=== PATIENT | male | born 1935 | race Caucasian/White ===

== ENCOUNTER 2018-05-11 02:05 | Emergency (ER) | payer MEDICARE, OTHER ==
--- NOTE | 2018-05-11 02:29 | EDM.PDOC ---
ED HPI GENERAL MEDICAL PROBLEM - General Chief Complaint: Chest Pain Stated Complaint: CP Time Seen by Provider: 05/11/18 02:08 Source of Information: Reports: Patient History Limitations: Reports: No Limitations - History of Present Illness INITIAL COMMENTS - FREE TEXT/NARRATIVE: This patient is an 82 year old male that presents to the ER. The patient arrives via EMS. The patient reports that at 9:30pm that he was watching the news sitting on the couch when the right side of chest began to hurt. The patient reports the pain is dull. He reports that the pain currently in the ER is a pain of 2/10. The patient reports that taking a big deep breath and palpation make the dullness worse. 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 he reports his last stress test was done in September 2017. The patient reports the stress test was fine. Patient reports that he has not had EKG done here in [place] before. He reports his cardiac care has been done in [place]. The patient is alert and oriented. Patient denies knox, dizziness, n, v, d, f, cough, dyspnea, exertional dyspnea, abd pain, back pain, urinary/bowel changes, rashes, edema. Onset Date: 05/10/18 Onset Time: 21:30 Duration: Hour(s): (5) Location: Reports: Chest Quality: Reports: Dull Severity: Mild Worsens with: Reports: Breathing (Big deep breath), Other (Palpation) Associated Symptoms: Reports: Chest Pain. 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 Middle Chest Pain Score (Numeric/FACES): 2 - Related Data Allergies Allergy/AdvReac Type Severity Reaction Status Date / Time No Known Allergies Allergy Verified 05/11/18 02:24 Home Meds: Home Meds Aspirin [Halfprin] 81 mg PO BEDTIME 05/16/15 [History] Diclofenac Sodium [Voltaren] 75 mg PO DAILY 05/16/15 [History] Isosorbide Mononitrate [Isosorbide Mononitrate ER] 30 mg PO DAILY 05/16/15 [ History] Metoprolol Tartrate 12.5 mg PO DAILY 05/16/15 [History] atorvaSTATin [Lipitor] 40 mg PO BEDTIME 05/16/15 [History] Cholecalciferol (Vitamin D3) [Vitamin D3] 2,000 units PO DAILY 06/02/15 [History ] Fish Oil/[place]-3 Fatty Acids [Fish Oil] 2,400 mg PO DAILY 06/02/15 [History] Ubidecarenone [Co Q-10] 300 mg PO DAILY 06/02/15 [History] Vitamin B Complex [B Complex] 1 tab PO DAILY 06/02/15 [History] Ascorbic Acid [Vitamin C] 1,000 mg PO DAILY 05/11/18 [History] Past Medical History Cardiovascular History: Reports: High Cholesterol, Hypertension - Past Surgical History GI Surgical History: Reports: Appendectomy Musculoskeletal Surgical History: Reports: Hip Replacement Social & Family History - Family History Family Medical History: Noncontributory - Tobacco Use Smoking Status *Q: Never Smoker - Caffeine Use Caffeine Use: Reports: None - Recreational Drug Use Recreational Drug Use: No ED ROS GENERAL - Review of Systems Review Of Systems: See Below Constitutional: Reports: No Symptoms. Denies: Fever, Chills, Malaise, Weakness , Fatigue, Night Sweats, Diaphoresis, Decreased Appetite, Weight Loss HEENT: Reports: Rhinitis Respiratory: Denies: Shortness of Breath, Wheezing, Cough, Sputum, Hemoptysis Cardiovascular: Reports: Chest Pain. Denies: Blood Pressure Problem, Claudication, Dyspnea on Exertion, Edema, Lightheadedness, Orthopnea, Palpitations, Syncope Endocrine: Reports: No Symptoms GI/Abdominal: Reports: No Symptoms. Denies: Abdominal Pain, Diarrhea, Nausea, Vomiting : Reports: No Symptoms Musculoskeletal: Reports: No Symptoms. Denies: Neck Pain, Back Pain Skin: Reports: No Symptoms Neurological: Reports: No Symptoms. Denies: Confusion, Dizziness, Headache, Numbness, Paresthesia, Pre-Existing Deficit, Seizure, Syncope, Tingling, Tremors , Trouble Speaking, Difficulty Walking, Weakness, Change in Speech, Gait Disturbance Psychiatric: Reports: No Symptoms Hematologic/Lymphatic: Reports: No Symptoms Immunologic: Reports: No Symptoms ED EXAM, GENERAL - Physical Exam Exam: See Below Exam Limited By: No Limitations General Appearance: Alert, WD/WN, No Apparent Distress Eye Exam: Bilateral Eye: Normal Inspection, PERRL Ears: Normal External Exam, Normal Canal, Hearing Grossly Normal, Normal TMs Ear Exam: Bilateral Ear: Auricle Normal, Canal Normal, TM normal Nose: Normal Inspection, Normal Mucosa, No Blood Throat/Mouth: Normal Inspection, Normal Lips, Normal Teeth, Normal Gums, Normal Oropharynx, Normal Voice, No Airway Compromise Head: Atraumatic, Normocephalic Neck: Normal Inspection, Supple, Non-Tender, Full Range of Motion Respiratory/Chest: No Respiratory Distress, Lungs Clear, Normal Breath Sounds, No Accessory Muscle Use, Other (Right chest wall. Pain made worse with palpation per patient. Also made worse with taking big deep breath.) Cardiovascular: Normal Peripheral Pulses, Regular Rate, Rhythm, No Edema, No Gallop, No JVD, No Murmur, No Rub Peripheral Pulses: 2+: Radial (L), Radial (R), Posterior Tibial (L), Posterior Tibial (R), Dorsalis Pedis (L), Dorsalis Pedis (R) GI/Abdominal: Normal Bowel Sounds, Soft, Non-Tender, No Organomegaly, No Distention, No Abnormal Bruit, No Mass, Pelvis Stable (Male) Exam: Deferred Rectal (Males) Exam: Deferred Back Exam: Normal Inspection, Full Range of Motion Extremities: Normal Inspection, Normal Range of Motion, Non-Tender, No Pedal Edema, Normal Capillary Refill Neurological: Alert, Oriented, Normal Cognition, No Motor/Sensory Deficits Psychiatric: Normal Affect, Normal Mood Skin Exam: Warm, Dry, Intact, Normal Color, No Rash Lymphatic: No Adenopathy EKG INTERPRETATION EKG Date: 05/11/18 Time: 02:18 Rhythm: Other (Calvin) Rate (Beats/Min): 54 QRS: LBBB ID/PQ Interval: 1st degree AV Block Comparison: NA - No Prior EKG Course - Vital Signs Last Recorded V/S: Last Vital Signs Temp 97.6 F 05/11/18 08:00 Pulse 50 L 05/11/18 08:00 Resp 20 05/11/18 08:00 BP 158/73 H 05/11/18 08:00 Pulse Ox 100 05/11/18 08:00 - Orders/Labs/Meds Orders: Active Orders 24 hr Category Date Time Status Chest 2V [CR] Stat Exams 05/11/18 02:10 Taken Labs: Laboratory Tests 05/11/18 05/11/1818 Range/Units 02:10 02:10 02:10 WBC 5.6 (5.0-10.0) 10^3/uL RBC 4.14 L (4.50-6.00) 10^6/uL Hgb 13.2 L (14.0-18.0) g/dL Hct 39.5 L (40.0-54.0) % MCV 95.4 H (82.0-94.0) fL MCH 31.9 (27.0-32.0) pg MCHC 33.4 (33.0-38.0) g/dL RDW Coeff of Thalia 13.3 (11.0-15.0) % Plt Count 175 (150-400) 10^3/uL Neut % (Auto) 45.3 (35-85) % Lymph % (Auto) 40.5 (10-55) % Greene % (Auto) 11.5 (0-16) % Eos % (Auto) 2.5 (0-5) % Baso % (Auto) 0.2 (0-3) % Neut # (Auto) 2.52 (1.80-7.00) 10^3/uL Lymph # (Auto) 2.25 (1.00-4.80) 10^3/uL Greene # (Auto) 0.64 (0.00-0.80) 10^3/uL Eos # (Auto) 0.14 (0.00-0.45) 10^3/uL Baso # (Auto) 0.01 10^3/uL PT 10.1 (9.7-12.3) SEC INR 0.97 (0.92-1.18) Sodium 143 (136-145) mEq/L Potassium 3.7 (3.5-5.0) mEq/L Chloride 104 (98-106) mEq/L Carbon Dioxide 31 (21-32) mmol/L BUN 21 H (7-18) mg/dL Creatinine 0.9 (0.7-1.3) mg/dL Est Cr Clr Drug Dosing 67.40 mL/min Estimated GFR (MDRD) > 60 (>=60) mL/min Glucose 104 H (75-99) mg/dL Calcium 9.0 (8.4-10.1) mg/dL Total Bilirubin 0.6 (0.0-1.0) mg/dL AST 29 (15-37) U/L ALT 30 (12-78) U/L Alkaline Phosphatase 123 H (46-116) U/L Lactate Dehydrogenase 200 H (100-190) U/L Creatine Kinase 99 (35-232) U/L Troponin I < 0.017 (0.00-0.06) ng/mL Total Protein 6.7 (6.4-8.2) g/dL Albumin 3.6 (3.4-5.0) g/dL 05/11/18 05/11/18 Range/Units 05:00 09:00 WBC (5.0-10.0) 10^3/uL RBC (4.50-6.00) 10^6/uL Hgb (14.0-18.0) g/dL Hct (40.0-54.0) % MCV (82.0-94.0) fL MCH (27.0-32.0) pg MCHC (33.0-38.0) g/dL RDW Coeff of Thalia (11.0-15.0) % Plt Count (150-400) 10^3/uL Neut % (Auto) (35-85) % Lymph % (Auto) (10-55) % Greene % (Auto) (0-16) % Eos % (Auto) (0-5) % Baso % (Auto) (0-3) % Neut # (Auto) (1.80-7.00) 10^3/uL Lymph # (Auto) (1.00-4.80) 10^3/uL Greene # (Auto) (0.00-0.80) 10^3/uL Eos # (Auto) (0.00-0.45) 10^3/uL Baso # (Auto) 10^3/uL PT (9.7-12.3) SEC INR (0.92-1.18) Sodium (136-145) mEq/L Potassium (3.5-5.0) mEq/L Chloride (98-106) mEq/L Carbon Dioxide (21-32) mmol/L BUN (7-18) mg/dL Creatinine (0.7-1.3) mg/dL Est Cr Clr Drug Dosing mL/min Estimated GFR (MDRD) (>=60) mL/min Glucose (75-99) mg/dL Calcium (8.4-10.1) mg/dL Total Bilirubin (0.0-1.0) mg/dL AST (15-37) U/L ALT (12-78) U/L Alkaline Phosphatase (46-116) U/L Lactate Dehydrogenase (100-190) U/L Creatine Kinase (35-232) U/L Troponin I 0.022 0.021 (0.00-0.06) ng/mL Total Protein (6.4-8.2) g/dL Albumin (3.4-5.0) g/dL - Radiology Interpretation Free Text/Narrative:: CXR: No infiltrates, pulmonary edema, or pneumothorax - Re-Assessments/Exams Free Text/Narrative Re-Assessment/Exam: 05/11/18 03:20 [facility] has been contacted for previous records and EKG. Awaiting these records. Second troponin will also be drawn at 5am. 05/11/18 04:16 EKG has been received and stress test. The patient EKG is unchanged from todays. Previous HR 57, LBBB. Will wait on the troponin redraw. Patient reports pain is improved. Will discharge patient if repeat troponin is negative. Patient educated to followup with circular knitter helper. 05/11/18 12:06 Patient remains pain free. I have spoken to Grubber at [facility]. He has reviewed stress test previous, ekgs, labs, and patient. He would like to increase his Imdur to 90mg once day. He says he can just take 1 1/2 of his current pills. Call his circular knitter helper tomorrow for followup. I have discussed this with the patient and he has verbalized back understanding. Departure - Departure Time of Disposition: 05:30 Disposition: Home, Self-Care 01 Condition: Fair Clinical Impression: Atypical chest pain Instructions: Nonspecific Chest Pain Referrals: Stephon Sommers MD [Primary Care Provider] - Forms: ED Department Discharge Additional Instructions: Followup with primary care provider Call Grubber Saturday morning for a followup Return to the ER for worsening of condition or any emergent concerns Isosorbide Mononitrate 90mg 1 pill once a day: Increase form 60mg. - My Orders Last 24 Hours: My Active Orders 05/11/18 02:10 Chest 2V [CR] Stat - Assessment/Plan Last 24 Hours: My Active Orders 05/11/18 02:10 Chest 2V [CR] Stat Plan: PLEASE SEE RN NOTE FOR PFSH.
[2018-05-11 02:48] LABS: CHLORIDE,CL 104 mEq/L (98-106); SODIUM,NA 143 mEq/L (136-145)
[2018-05-11 08:36] VITALS: BP 158/73
[2018-05-11] MEDS ORDERED: Aspirin 325 MG Tab PO ONE (11:28)
== END 2018-05-11 14:08 | disposition home or self-care (01) ==
LOC: CC.ED 02:05
DX: R07.89 Other chest pain (principal); I10 Essential (primary) hypertension; Z79.82 Long term (current) use of aspirin
CPT/HCPCS: 36415; 71046; 80053; 82550; 83615; 84484; 85025; 85610; 93005; 99285

== ENCOUNTER 2019-05-25 19:27 | Emergency (ER) | payer MEDICARE, OTHER ==
[2019-05-25 19:44] VITALS: BP 144/82; PULSE 67
--- NOTE | 2019-05-25 19:53 | EDM.PDOC ---
ED HPI GENERAL MEDICAL PROBLEM - General Chief Complaint: Abdominal Pain Stated Complaint: constipation Time Seen by Provider: 05/25/19 19:30 Source of Information: Reports: Patient History Limitations: Reports: No Limitations - History of Present Illness INITIAL COMMENTS - FREE TEXT/NARRATIVE: Patient presents with complaints of rectal discomfort/soreness due to no BM for about a week. States did try a suppository at home today with no relief. He relates has 2 other episodes like this in the last 4 years but otherwise does not typically have problems with this. He is not routinely on any stool softeners or Miralax. Started gabapentin about 2 weeks ago for pain related to spinal stenosis. Has been having problems with his right pain. Not on any narcotics at this point. Denies any nausea/vomiting or abdominal pain. No fevers. 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 HISTORY: suppository Rectal Pain Score (Numeric/FACES): 4 - Related Data Allergies Allergy/AdvReac Type Severity Reaction Status Date / Time No Known Allergies Allergy Verified 05/25/19 19:44 Home Meds: Home Meds Aspirin [Halfprin] 81 mg PO BEDTIME 05/16/15 [History] Diclofenac Sodium [Voltaren] 75 mg PO DAILY 05/16/15 [History] Isosorbide Mononitrate [Isosorbide Mononitrate ER] 90 mg PO DAILY 05/16/15 [ History] Metoprolol Tartrate 25 mg PO DAILY 05/16/15 [History] atorvaSTATin [Lipitor] 40 mg PO BEDTIME 05/16/15 [History] Cholecalciferol (Vitamin D3) [Vitamin D3] 2,000 units PO DAILY 06/02/15 [History ] Fish Oil/[place]-3 Fatty Acids [Fish Oil] 10,000 mg PO DAILY 06/02/15 [History] Ubidecarenone [Co Q-10] 300 mg PO DAILY 06/02/15 [History] Ascorbic Acid [Vitamin C] 1,000 mg PO DAILY 05/11/18 [History] Gabapentin [Neurontin] 300 mg PO TID 05/25/19 [History] Magnesium 250 mg PO DAILY 05/25/19 [History] Multivitamin [Multi-Day Vitamins] 1 tab PO DAILY 05/25/19 [History] Past Medical History Cardiovascular History: Reports: High Cholesterol, Hypertension Musculoskeletal History: Reports: Back Pain, Chronic, Osteoarthritis, Other ( See Below) Other Musculoskeletal History: spinal stenosis - Past Surgical History GI Surgical History: Reports: Appendectomy Musculoskeletal Surgical History: Reports: Hip Replacement Social & Family History - Family History Family Medical History: Noncontributory - Caffeine Use Caffeine Use: Reports: None ED ROS GENERAL - Review of Systems Review Of Systems: See Below Constitutional: Denies: Fever, Chills, Malaise, Weakness, Decreased Appetite HEENT: Reports: Eye Discharge Respiratory: Denies: Shortness of Breath, Cough Cardiovascular: Denies: Chest Pain, Edema, Lightheadedness Endocrine: Denies: Fatigue GI/Abdominal: Reports: Constipation. Denies: Abdominal Pain, Nausea, Vomiting : Reports: No Symptoms Musculoskeletal: Reports: Back Pain, Joint Pain Skin: Reports: No Symptoms Neurological: Reports: No Symptoms ED EXAM, GI/ABD - Physical Exam Exam: See Below Exam Limited By: No Limitations General Appearance: Alert, WD/WN, No Apparent Distress Head: Normocephalic Neck: Normal Inspection, Supple, Non-Tender Respiratory/Chest: No Respiratory Distress, Lungs Clear, Normal Breath Sounds Cardiovascular: Regular Rate, Rhythm GI/Abdominal Exam: Normal Bowel Sounds, Soft, Non-Tender Rectal (Males) Exam: Fecal Impaction Extremities: Normal Inspection, No Pedal Edema Neurological: Alert, Oriented Skin Exam: Warm, Dry Course - Vital Signs Last Recorded V/S: Last Vital Signs Temp 96.8 F 05/25/19 19:27 Pulse 67 05/25/19 19:27 Resp 16 05/25/19 19:27 BP 144/82 H 05/25/19 19:27 Pulse Ox 97 05/25/19 19:27 - Orders/Labs/Meds Orders: Active Orders 24 hr Category Date Time Status Enema [RC] ASDIRECTED Care 05/25/19 19:52 Active Enema [RC] ASDIRECTED Care 05/25/19 20:39 Active - Re-Assessments/Exams Free Text/Narrative Re-Assessment/Exam: 05/25/19 21:38 Patient did not have much success with fleets enema. Got 2 soap suds enema with results. Departure - Departure Time of Disposition: 21:38 Disposition: Home, Self-Care 01 Condition: Good Clinical Impression: Constipation - Discharge Information *PRESCRIPTION DRUG MONITORING PROGRAM REVIEWED*: No *COPY OF PRESCRIPTION DRUG MONITORING REPORT IN PATIENT ISABEL: No Referrals: Stephon Sommers MD [Primary Care Provider] - Forms: ED Department Discharge Additional Instructions: 1. Push fluids 2. Miralax one scoop daily, if develop loose stools, can cut back to 1/2 scoop or take every other day 3. Follow up with Dr. Sommers if concerns. - My Orders Last 24 Hours: My Active Orders 05/25/19 19:52 Enema [RC] ASDIRECTED 05/25/19 20:39 Enema [RC] ASDIRECTED - Assessment/Plan Last 24 Hours: My Active Orders 05/25/19 19:52 Enema [RC] ASDIRECTED 05/25/19 20:39 Enema [RC] ASDIRECTED
[2019-05-25] MEDS ORDERED: Ondansetron 4 MG Tab.DIS ONE (22:33)
== END 2019-05-25 23:20 | disposition home or self-care (01) ==
LOC: SUPCPDRO 19:27 → CC.ED 19:27
DX: K59.00 Constipation, unspecified (principal); I10 Essential (primary) hypertension; E78.00 Pure hypercholesterolemia, unspecified; Z79.82 Long term (current) use of aspirin; Z79.899 Other long term (current) drug therapy
CPT/HCPCS: 99283; A9270

== ENCOUNTER 2020-09-25 15:40 | Emergency (ER) | payer MEDICARE, OTHER ==
--- NOTE | 2020-09-25 16:02 | EDM.PDOC ---
ED HPI GENERAL MEDICAL PROBLEM - General Chief Complaint: Cardiovascular Problem Stated Complaint: CP Time Seen by Provider: 09/25/20 15:49 Source of Information: Reports: Patient History Limitations: Reports: No Limitations - History of Present Illness INITIAL COMMENTS - FREE TEXT/NARRATIVE: This patient is an 85 year old male that presents to the ER. Patient reports that at 11:45am this morning he just got out of the shower and sarted having substernal chest pain that was dull in nature. Patient reports that he took 1 nitro, but it was hard to get under the tongue so sat on the tip of his tongue, then 5 minutes later took a 2nd nitro and his pain resolved completely per patient. Patient reports that he did not have any nausea, vomiting, diarrhea, fever, headache, dizziness, lightheadedness, shortness of breath, radiation of pain, abd pain, back pain He reports he has had chest pain like this before after activity and he rest and take nitro and his pain resolves. He reports that this time it felt the same as it usually does, but he looked down at his chest and saw small red blood vessels and he became concerned that that was a sign of a heart attack. Patient has had 0/10 pain since 11:57am when after his 2nd nitro was pain free. He also reports after taking his nitro x2, he went to the kitchen and took a full ASA that he chewed. Onset: Today Onset Date: 09/25/20 Onset Time: 11:45 Location: Reports: Chest Quality: Reports: Dull Severity: Mild Improves with: Reports: Medication (Nitro x2) Worsens with: Reports: None Associated Symptoms: Reports: Chest Pain. 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 - Related Data Allergies Allergy/AdvReac Type Severity Reaction Status Date / Time No Known Allergies Allergy Verified 09/25/20 15:58 Home Meds: Home Meds Aspirin [Halfprin] 81 mg PO BEDTIME 05/16/15 [History] Isosorbide Mononitrate [Isosorbide Mononitrate ER] 90 mg PO DAILY 05/16/15 [History] Metoprolol Tartrate 25 mg PO DAILY 05/16/15 [History] atorvaSTATin [Lipitor] 40 mg PO BEDTIME 05/16/15 [History] Cholecalciferol (Vitamin D3) [Vitamin D3] 2,000 units PO DAILY 06/02/15 [History] Fish Oil/[place]-3 Fatty Acids [Fish Oil] 10,000 mg PO DAILY 06/02/15 [History] Ubidecarenone [Co Q-10] 300 mg PO DAILY 06/02/15 [History] Ascorbic Acid [Vitamin C] 1,000 mg PO DAILY 05/11/18 [History] Multivitamin [Multi-Day Vitamins] 1 tab PO DAILY 05/25/19 [History] Past Medical History HEENT History: Reports: Hard of Hearing, Impaired Vision Cardiovascular History: Reports: High Cholesterol, Hypertension Musculoskeletal History: Reports: Back Pain, Chronic, Osteoarthritis, Other (See Below) Other Musculoskeletal History: spinal stenosis - Past Surgical History GI Surgical History: Reports: Appendectomy Musculoskeletal Surgical History: Reports: Hip Replacement Social & Family History - Family History Family Medical History: No Pertinent Family History - Tobacco Use Tobacco Use Status *Q: Never Tobacco User - Caffeine Use Caffeine Use: Reports: None - Recreational Drug Use Recreational Drug Use: No ED ROS GENERAL - Review of Systems Review Of Systems: See Below Constitutional: Reports: No Symptoms HEENT: Reports: No Symptoms Respiratory: Reports: No Symptoms. Denies: Shortness of Breath Cardiovascular: Reports: Chest Pain. Denies: Dyspnea on Exertion, Edema, Lightheadedness, Palpitations, Syncope Endocrine: Reports: No Symptoms GI/Abdominal: Reports: No Symptoms. Denies: Abdominal Pain, Diarrhea, Nausea, Vomiting : Reports: No Symptoms Musculoskeletal: Reports: No Symptoms Skin: Reports: Other (small red stringy lines on chest) Neurological: Reports: No Symptoms Psychiatric: Reports: No Symptoms Hematologic/Lymphatic: Reports: No Symptoms Immunologic: Reports: No Symptoms ED EXAM, GENERAL - Physical Exam Exam: See Below Exam Limited By: No Limitations General Appearance: Alert, WD/WN, No Apparent Distress Eye Exam: Bilateral Eye: Normal Inspection, PERRL Ears: Normal External Exam, Normal Canal, Hearing Grossly Normal, Normal TMs Ear Exam: Bilateral Ear: Auricle Normal, Canal Normal, TM normal Nose: Normal Inspection, Normal Mucosa, No Blood Throat/Mouth: Normal Inspection, Normal Lips, Normal Teeth, Normal Gums, Normal Oropharynx, Normal Voice, No Airway Compromise Head: Atraumatic, Normocephalic Neck: Normal Inspection, Supple, Non-Tender, Full Range of Motion Respiratory/Chest: No Respiratory Distress, Lungs Clear, Normal Breath Sounds, No Accessory Muscle Use, Chest Non-Tender Cardiovascular: Normal Peripheral Pulses, Regular Rate, Rhythm, No Edema, No Gallop, No JVD, No Murmur, No Rub Peripheral Pulses: 2+: Carotid (L), Carotid (R), Radial (L), Radial (R), Posterior Tibial (L), Posterior Tibial (R), Dorsalis Pedis (L), Dorsalis Pedis (R) GI/Abdominal: Normal Bowel Sounds, Soft, Non-Tender, No Organomegaly, No Distention, No Abnormal Bruit, No Mass, Pelvis Stable (Male) Exam: Deferred Rectal (Males) Exam: Deferred Back Exam: Normal Inspection, Full Range of Motion Extremities: Normal Inspection, Normal Range of Motion, Non-Tender, No Pedal Edema, Normal Capillary Refill Neurological: Alert, Oriented, Normal Cognition, Normal Gait, No Motor/Sensory Deficits Psychiatric: Normal Affect, Normal Mood, Other Skin Exam: Warm, Dry, Intact, Normal Color, No Rash, Other (Telangiectasia on chest is what patient is referring to red lines he thought was a heart attack.) Lymphatic: No Adenopathy #1 Interpretation EKG Date: 09/25/20 Time: 15:49 Rhythm: Other (danielle) Rate (Beats/Min): 52 QRS: LBBB Comparison: No Change (10/05/19) Course - Vital Signs Last Recorded V/S: Last Vital Signs Temp 98.7 F 09/25/20 15:41 Pulse 56 L 09/25/20 15:41 Resp 18 09/25/20 15:41 BP 147/76 H 09/25/20 15:41 Pulse Ox 97 09/25/20 15:41 - Orders/Labs/Meds Orders: Active Orders 24 hr Category Date Time Status Cardiac Monitoring [RC] . DIRECTED Care 09/25/20 15:51 Active EKG Documentation Completion [RC] STAT Care 09/25/20 16:02 Active Chest 2V [CR] Stat Exams 09/25/20 15:49 Taken TROPONIN I [CHEM] Stat Lab 09/25/20 20:00 Ordered EKG 12 Lead [EK] Stat Ther 09/25/20 15:49 Stop Req Labs: Laboratory Tests 09/25/20 09/25/20 09/25/20 Range/Units 16:03 16:03 16:03 WBC 5.9 (5.0-10.0) 10^3/uL RBC 3.96 L (4.50-6.00) 10^6/uL Hgb 12.8 L (14.0-18.0) g/dL Hct 37.9 L (40.0-54.0) % MCV 95.7 H (82.0-94.0) fL MCH 32.3 H (27.0-32.0) pg MCHC 33.8 (33.0-38.0) g/dL RDW Coeff of Thalia 12.9 (11.0-15.0) % Plt Count 205 (150-400) 10^3/uL Neut % (Auto) 61.2 (35-85) % Lymph % (Auto) 28.0 (10-55) % Dickenson % (Auto) 9.3 (0-16) % Eos % (Auto) 1.2 (0-5) % Baso % (Auto) 0.3 (0-3) % Neut # (Auto) 3.63 (1.80-7.00) 10^3/uL Lymph # (Auto) 1.66 (1.00-4.80) 10^3/uL Dickenson # (Auto) 0.55 (0.00-0.80) 10^3/uL Eos # (Auto) 0.07 (0.00-0.45) 10^3/uL Baso # (Auto) 0.02 10^3/uL PT 10.8 (9.7-12.3) SEC INR 1.07 (0.92-1.18) APTT 23.1 L (23.2-32.3) SEC Sodium 143 (136-145) mEq/L Potassium 3.7 (3.5-5.0) mEq/L Chloride 103 (98-106) mEq/L Carbon Dioxide 31 (21-32) mmol/L BUN 19 H (7-18) mg/dL Creatinine 0.9 (0.7-1.3) mg/dL Est Cr Clr Drug Dosing 42.44 mL/min Estimated GFR (MDRD) > 60 (>=60) mL/min Glucose 170 H D (75-99) mg/dL Calcium 9.1 (8.4-10.1) mg/dL Total Bilirubin 0.5 (0.0-1.0) mg/dL AST 27 (15-37) U/L ALT 37 (12-78) U/L Alkaline Phosphatase 103 (46-116) U/L Lactate Dehydrogenase 164 (100-190) U/L Creatine Kinase 57 (35-232) U/L Troponin I < 0.017 (0.00-0.06) ng/mL Total Protein 6.6 (6.4-8.2) g/dL Albumin 3.5 (3.4-5.0) g/dL - Radiology Interpretation Free Text/Narrative:: CXR: No acute findings - Re-Assessments/Exams Free Text/Narrative Re-Assessment/Exam: 09/25/20 16:39 Patient continues to be pain free. Will repeat troponin at 8pm. If negative, and pain free continues, will discharge home. 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 DIRECTED 09/25/20 16:02 EKG Documentation Completion [RC] STAT 09/25/20 20:00 TROPONIN I [CHEM] Stat - Assessment/Plan Last 24 Hours: My Active Orders 09/25/20 15:49 Chest 2V [CR] Stat EKG 12 Lead [EK] Stat 09/25/20 15:51 Cardiac Monitoring [RC] . DIRECTED 09/25/20 16:02 EKG Documentation Completion [RC] STAT 09/25/20 20:00 TROPONIN I [CHEM] Stat Plan: PLEASE SEE RN NOTE FOR PFSH
[2020-09-25 16:21] LABS: PTT,PARTIAL THROMBOPLSTIN TIME 23.1 SEC (23.2-32.3)
[2020-09-25 16:25] LABS: CHLORIDE,CL 103 mEq/L (98-106); SODIUM,NA 143 mEq/L (136-145)
[2020-09-25 19:49] VITALS: BP 135/58; PULSE 51
== END 2020-09-25 20:30 | disposition home or self-care (01) ==
LOC: CC.ED 15:40
DX: I20.8 Other forms of angina pectoris (principal); E78.00 Pure hypercholesterolemia, unspecified; I10 Essential (primary) hypertension; M19.90 Unspecified osteoarthritis, unspecified site; Z79.82 Long term (current) use of aspirin; Z79.899 Other long term (current) drug therapy
CPT/HCPCS: 36415; 71046; 80053; 82550; 83615; 84484; 85025; 85610; 85730; 93005; 93010; 99284; 99285-25

== ENCOUNTER 2022-05-21 21:39 | Emergency (ER) | payer MEDICARE, OTHER ==
[2022-05-21 21:44] VITALS: BP 138/76; PULSE 56
[2022-05-22] MEDS ORDERED: Metoclopramide 10 MG/2 ML SDV IM ONE (02:11)
== END 2022-05-21 22:10 | disposition home or self-care (01) ==
LOC: CC.ED 21:39
DX: S41.112A Laceration without foreign body of left upper arm, initial encounter (principal); E78.00 Pure hypercholesterolemia, unspecified; I10 Essential (primary) hypertension; Z79.82 Long term (current) use of aspirin; Z79.899 Other long term (current) drug therapy; Z90.49 Acquired absence of other specified parts of digestive tract; W18.40XA Slipping, tripping and stumbling without falling, unspecified, initial encounter
CPT/HCPCS: 96372; 99282; 99283

== ENCOUNTER 2023-05-23 19:51 | Emergency (ER) | payer MEDICARE ==
[2023-05-23 20:39] VITALS: BP 127/62; PULSE 78
== END 2023-05-23 21:35 | disposition home or self-care (01) ==
LOC: CC.ED 19:51
DX: K59.00 Constipation, unspecified (principal); I10 Essential (primary) hypertension; E78.00 Pure hypercholesterolemia, unspecified; M19.90 Unspecified osteoarthritis, unspecified site; Z79.82 Long term (current) use of aspirin; Z79.899 Other long term (current) drug therapy
CPT/HCPCS: 99283; 99284

== ENCOUNTER 2023-07-18 14:09 | Emergency (ER) | payer MEDICARE ==
[2023-07-18 17:53] VITALS: BP 127/74; PULSE 67
== END 2023-07-18 17:56 | disposition home or self-care (01) ==
LOC: CC.ED 14:09
DX: K59.00 Constipation, unspecified (principal); I10 Essential (primary) hypertension; E78.00 Pure hypercholesterolemia, unspecified; M19.90 Unspecified osteoarthritis, unspecified site; Z79.82 Long term (current) use of aspirin; Z79.899 Other long term (current) drug therapy; Z90.49 Acquired absence of other specified parts of digestive tract
CPT/HCPCS: 74019; 99284